=== PATIENT | female | born 1945 | race Caucasian/White ===

== ENCOUNTER → 2019-12-18 11:08 | Outpatient (CLI) | payer OTHER, SELFPAY ==
--- NOTE | 2019-12-18 11:56 | DI.MG.S_ITS ---
Patient Name: HANNAH FAULKNER date: 1945 Sex: F Attending Physician: Octavio Indications: Date: 12/18/2019 11:49 At the request of: ELIGIO PEACE Procedure: MM screening mammo BI BILATERAL DIGITAL SCREENING MAMMOGRAM 3D/2D WITH CAD: 12/18/2019 CLINICAL: Baseline exam. Routine screening. Family history of breast cancer. No prior exams were available for comparison. The tissue of both breasts is predominantly fatty. Current study was also evaluated with a Computer Aided Detection (CAD) system. There is an equal density asymmetry in the right breast sub-areolar depth central to the nipple seen on the mediolateral oblique view only. No other significant masses, calcifications, or other findings are seen in either breast. IMPRESSION: INCOMPLETE: NEEDS ADDITIONAL IMAGING EVALUATION The equal density asymmetry in the right breast is indeterminate. Additional views with possible ultrasound are recommended. This exam was interpreted at Station ID: [id number]. NOTE: For mammograms, a report in lay terms will be sent to the patient. Approximately 15% of breast malignancies will not be visualized mammographically. In the management of a palpable breast mass, a negative mammogram must not discourage biopsy of a clinically suspicious lesion. Electronically Signed By: Domingo Ospina M.D. aty/:12/18/2019 12:15:03 letter sent: Additional Imaging Needed ACR BI-RADS Category 0: Incomplete [id number]
== END ==
PROVIDERS: PCP Internal Medicine; Referring Provider Internal Medicine; Visit Provider Internal Medicine
DX: Z12.31 Encounter for screening mammogram for malignant neoplasm of breast (principal); Z80.3 Family history of malignant neoplasm of breast
CPT/HCPCS: 77063; 77067

== ENCOUNTER → 2020-01-19 14:09 | Outpatient (CLI) | payer OTHER, SELFPAY ==
--- NOTE | 2020-01-19 | DI.US.S_ITS ---
LIMITED ULTRASOUND OF RIGHT BREAST AND AXILLA: 01/19/2020 CLINICAL: Patient returns today to evaluate a focal asymmetry in the right breast. Comparison is made to exams dated: 01/19/2020 mammogram and 12/18/2019 mammogram - [facility]. Color flow ultrasound of the right breast retroareolar and axilla regions was performed. Lakhani scale images of the real-time examination were reviewed. No significant abnormalities were seen sonographically in the right axilla. An ill-defined area of hyperechoic breast tissue is seen in the right breast retroareolar area corresponding to the mammographic findings without a well-defined mass. IMPRESSION: PROBABLY BENIGN Fibroglandular tissue is seen in the retroareolar area without a well-defined mass. Findings are probably benign. Recommend follow-up right breast mammogram and ultrasound in 6 months for further evaluation. A follow-up right mammogram and an ultrasound in 6 months is recommended to demonstrate stability. This exam was interpreted at Station ID: [id number]. Electronically Signed By: Crow servin/kirsten:01/19/2020 16:43:05 letter sent: Followup Recommended Ultrasound BI-RADS: 3 Probably benign
--- NOTE | 2020-01-19 | DI.MG.S_ITS ---
UNILATERAL RIGHT DIGITAL DIAGNOSTIC MAMMOGRAM 3D/2D WITH ADDITIONAL VIEWS: 01/19/2020 CLINICAL: Additional evaluation requested from prior study. Comparison is made to exam dated: 12/18/2019 [facility]. The tissue of right breast is predominantly fatty. There is a focal asymmetry versus asymmetric fibroglandular tissue in the right breast central to the nipple in the retroareolar region. No other significant masses or calcifications are seen in the breast. IMPRESSION: INCOMPLETE: NEEDS ADDITIONAL IMAGING EVALUATION The focal asymmetry in the right breast is indeterminate. An ultrasound is recommended. This exam was interpreted at Station ID: [id number]. NOTE: For mammograms, a report in lay terms will be sent to the patient. Approximately 15% of breast malignancies will not be visualized mammographically. In the management of a palpable breast mass, a negative mammogram must not discourage biopsy of a clinically suspicious lesion. SUMMARY: Targeted ultrasound is recommended for further evaluation and will be scheduled immediately following this exam. Electronically Signed By: Crow Holloway M.D. ar/:01/19/2020 16:39:22 ACR BI-RADS Category 0: Incomplete [id number]
== END ==
PROVIDERS: PCP Internal Medicine; Referring Provider Internal Medicine; Visit Provider Internal Medicine
DX: R92.8 Other abnormal and inconclusive findings on diagnostic imaging of breast (principal); N64.89 Other specified disorders of breast
CPT/HCPCS: 76642; 77065; G0279